=== PATIENT | male | born 1990 | race Caucasian/White ===

== ENCOUNTER 2016-05-26 06:09 | Emergency (ER) | payer OTHER ==
[2016-05-26 07:11] LABS: BASO # 0.1 K/mm3 (0.0-0.2); BASO % 1.2 % (0.0-1.0); EOS # 0.2 K/mm3 (0.0-0.50); EOS % 1.6 % (0.0-3.0); LARGE UNSTAINED CELL # 0.3 K/mm3 (0.0-0.4); LARGE UNSTAINED CELL % 2.9 % (0.0-4.0); LYMPH # 2.4 K/mm3 (1.5-6.5); LYMPH % 22.3 % (24.0-44.0); MEAN CORPUSCULAR HEMOGLOBIN 28.7 pg (27.0-33.0); MEAN CORPUSCULAR HGB CONC 34.5 g/dl (32.0-36.5); MEAN CORPUSCULAR VOLUME 83.4 fl (80.0-96.0); MONO # 0.5 K/mm3 (0.0-0.8); MONO % 4.7 % (0.0-5.0); NEUTROPHILS # 6.5 K/mm3 (1.8-7.7); NEUTROPHILS % 67.3 % (36.0-66.0); PLATELET COUNT, AUTOMATED 218 k/mm3 (150-450); RED CELL DISTRIBUTION WIDTH 13.7 % (11.5-14.5); WHITE BLOOD COUNT 9.7 K/mm3 (4.0-10.0)
[2016-05-26 07:16] LABS: INR 0.89
[2016-05-26 07:27] LABS: ANION GAP 9 MEQ/L (8-16); BLOOD UREA NITROGEN 15 MG/DL (7-18); CALCIUM LEVEL 9.6 MG/DL (8.5-10.1); CARBON DIOXIDE LEVEL 28 MEQ/L (21-32); CHLORIDE LEVEL 104 MEQ/L (98-107); CREATININE FOR GFR 0.92 MG/DL (0.70-1.30); GLOMERULAR FILTRATION RATE > 60.0 (>60); GLUCOSE, FASTING 88 MG/DL (70-105); POTASSIUM SERUM 4.1 MEQ/L (3.5-5.1); SODIUM LEVEL 141 MEQ/L (136-145)
--- NOTE | 2016-05-26 07:47 | REP ---
Clinical: Acute cough . Comparison: None . Technique: PA and lateral. Findings: The cardiac silhouette is normal. Mediastinal shift towards the left hemithorax is likely chronic given the patient's history. The lung ortega are clear and without acute consolidation, effusion, or pneumothorax. The skeletal structures are intact and normal. Impression: 1. No acute cardiopulmonary process. Signed by Devin Barrera MD 05/26/2016 07:39 A
[2016-05-26] MEDS ORDERED: ISOVUE-370 76% 100ML VIAL (Q9967) As Ordered ONE (08:08)
--- NOTE | 2016-05-26 08:56 | REP ---
Clinical: Hemoptysis. Technique: Axial contrast enhanced images from the thoracic inlet to the upper abdomen using 100 ml Isovue 370 intravenous contrast material coronal and sagittal re-formations. Findings: With respect to evaluation for pulmonary embolism, the examination is suboptimal due to poor opacification of the pulmonary arterial system secondary to underlying congenital abnormalities. 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 There is relatively diminutive appearance to the left main pulmonary artery with relative hypoplastic appearance to the left hemithorax and small irregular vessels in the region of the left hilum which may represent irregular collateral vessels replacing more being normal left main pulmonary artery. The tracheobronchial system appears relatively normal with appropriate bronchi outlining three right lung lobes (RUL, RML, RLL) and two left lung lobes (PETE, LLL). No pulmonary parenchymal consolidation, nodule or mass lesion is appreciated. No pleural effusion/reaction or pneumothorax. Skeletal structures are intact. Limited evaluation of the upper abdomen suggests fatty infiltration to the liver. Impression: 1. 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 2. Incomplete assessment of the pulmonary arterial system for pulmonary embolus. 3. Fatty infiltration the liver. Signed by Devin Barrera MD 05/26/2016 08:46 A
--- NOTE | 2016-05-26 10:09 | REP ---
Clinical: Hemoptysis and chest pain . Technique: Johnson scale and color Doppler evaluation using linear high frequency transducer. Findings: Ultrasound examination of the right and left lower extremity deep venous structures from the common femoral vein to the popliteal vein demonstrates normal compressibility flow and wave patterns in response to respiration and augmentation. There is no evidence for deep venous thrombosis. Impression: No evidence for deep venous thrombosis bilateral lower extremities. Signed by Devin Barrera MD 05/26/2016 10:01 A
--- NOTE | 2016-05-26 10:48 | EDDOCDS ---
Physician Documentation [facility] Name: Antonino Bennett Age: 25 yrs Sex: Male : 1990 Arrival Date: 05/26/2016 Time: 06:09 Bed 14 Private MD: Disposition: 05/26/16 10:23 Discharged to Home/Self Care. Impression: Hemoptysis - associated with productive cough. - Condition is Stable. - Discharge Instructions: Acute Bronchitis, Hemoptysis, Cough, Adult, [id number]. - Prescriptions for Zithromax Z- Cornelius 250 mg Oral Tablet - take 1 tablet by ORAL route as directed for 5 days Day 1- take two tablets once. Day 2, 3, 4 , 5 take one tablet once daily.; 6 tablet. Albuterol Sulfate 90 mcg/actuation Inhalation HFA Aerosol Inhaler - inhale 2 puff by INHALATION route every 4 hours As needed; 1 Inhaler. - Medication Reconciliation, Local Pharmacy Hours form. - Follow up: [facility] - Adults; When: Call to arrange an appointment. - Problem is new. - Symptoms have improved. Historical: - Allergies: BARBITURATES; SULFA (SULFONAMIDES); - Home Meds: 1. none - PMHx: Arthritis; - PSHx: none; - Social history: Smoking status: Patient uses tobacco products, current every day smoker. No barriers to communication noted, The patient speaks fluent Belarusian. - Family history: Not pertinent. - : The pt / caregiver states he / she is not on anticoagulants. Home medication list is obtained from the patient. - Exposure Risk Screening:: None identified. Vital Signs: 05/26 06:13 BP 139 / 89 RA Sitting; Pulse 106; Resp 18 S; Temp 99.3(T); Pulse Ox 94% on R/A; Weight af2 136.08 kg / 300.01 lbs (R); Height 5 ft. 10 in. (177.80 cm) (R); Pain 0/10; 08:28 BP 143 / 87; Pulse 96; Resp 18; Temp 98.1; Pulse Ox 97% on R/A; Pain 3/10; jrd 10:45 BP 134 / 76; Pulse 88; Resp 18; Temp 97.8; Pulse Ox 95% ; Pain 0/10; hs1 06:13 Body Mass Index 43.05 (136.08 kg, 177.80 cm) af2 MDM: 06:46 -Blood Culture (Adults Only), peripheral from different site, or from device/port/PICC cs11 etc. if present ordered. 06:46 IV Saline Lock ordered. cs11 06:47 Chest, 2 View (pa\E\lat) Ordered. EDMS 06:47 CBC with Diff Ordered. EDMS 06:47 MED Profile Ordered. EDMS 06:47 Pt & Aptt Ordered. EDMS 06:47 Lactic Acid (Johnson tube on ice) Ordered. EDMS 06:47 -Blood Culture Ordered. EDMS 06:47 -Blood Culture (Adults Only), peripheral from different site, or from device/port/PICC deg etc. if present complete. 06:48 BLOOD CULTURES Ordered. EDMS 07:52 CBC with Diff Reviewed. sd1 07:52 Pt & Aptt Reviewed. sd1 07:52 MED Profile Reviewed. sd1 07:52 Lactic Acid (Johnson tube on ice) Reviewed. sd1 07:54 CT Chest Angio R/O PE Ordered. EDMS 08:28 Financial registration complete. mm15 08:30 [facility] Payment Agreement was scanned into [employer] and attached to record. mm15 08:42 Chest, 2 View (pa\E\lat) Reviewed. sd1 09:05 Sputum Culture & Gram Stain Ordered. EDMS 09:06 US Lower Extremities Bilateral R/O DVT Ordered. EDMS Signatures: Dispatcher [employer] EDMS Orquidea Dimas MD MD sd1 Kylie Meadows, Merchandise Appraiser Unit deg Jennifer Barnes RN RN hs1 Andrew Juárez, DO cs11 Maryse Dyson mm15 Brinda Desai RN RN af2 Diana Odom,WALDO RN tm5 The chart was reviewed and I authenticate all verbal orders and agree with the evaluation and treatment provided.Attachments: 08:30 [facility] Payment Agreement mm15 MTDD
--- NOTE | 2016-05-26 10:48 | EDDOCDS ---
Nurse's Notes [facility] Name: Antonino Bennett Age: 25 yrs Sex: Male : 1990 Arrival Date: 05/26/2016 Time: 06:09 Bed 14 Private MD: Diagnosis: Hemoptysis-associated with productive cough Presentation: 05/26 06:15 Presenting complaint: Patient states: "throwing up blood last night, more than 8 oz, af2 blood coming out of my belly button, light headed, nausea.". Adult Sepsis Screening: The patient does not have new or worsening altered mentation. Patient's respiratory rate is less than 22. Systolic blood pressure is greater than 100. Patient has a qSOFA score of 0- Negative Sepsis Screen. Suicide/Homicide risk assessment- the patient denies having any suicidal and/or homicidal ideations and does not present with any other emotional, behavioral or mental health complaints. Status: Patient is not a auto service mechanic or dependent. Transition of care: patient was not received from another setting of care. 06:15 Acuity: BENJAMÍN Level 3 af2 06:15 Method Of Arrival: Walkin/Carried/Asstd af2 Triage Assessment: 06:16 General: Appears unkempt, Behavior is appropriate for age. Pain: Denies pain. Pt af2 Declines HIV testing. GI: Reports nausea. Historical: - Allergies: BARBITURATES; SULFA (SULFONAMIDES); - Home Meds: 1. none - PMHx: Arthritis; - PSHx: none; - Social history: Smoking status: Patient uses tobacco products, current every day smoker. No barriers to communication noted, The patient speaks fluent Bruneian. - Family history: Not pertinent. - : The pt / caregiver states he / she is not on anticoagulants. Home medication list is obtained from the patient. - Exposure Risk Screening:: None identified. Screenin:30 Screening information is obtained from the patient. Fall risk: No risks identified. tm5 Assistance ADL's: requires no assistance with activities of daily living. Abuse/DV Screen: The patient / caregiver reports he/she is: not in a situation that causes fear, pain or injury. Nutritional screening: No deficits noted. Advance Directives: There is no active DNR order. home support is adequate. Assessment: 06:30 General: Appears unkempt, Behavior is appropriate for age, cooperative. Pain: Denies tm5 pain. Neurological: Level of Consciousness is awake, alert, Oriented to person, place, time. Respiratory: No deficits noted. Airway is patent Respiratory effort is even, unlabored, Respiratory pattern is regular, symmetrical, Breath sounds are clear bilaterally. GI: Abdomen is obese, Bowel sounds present X 4 quads. Reports vomiting. : No deficits noted. Derm: Skin is pink, warm & dry. normal. 07:20 General: Appears in no apparent distress, unkempt, Behavior is appropriate for age, hs1 cooperative. Pain: Denies pain. Neurological: Level of Consciousness is awake, alert, Oriented to person, place, time. Respiratory: Airway is patent Respiratory effort is even, unlabored, Respiratory pattern is regular, symmetrical, Breath sounds are clear bilaterally. Derm: Skin is pink, warm & dry. normal. 08:22 General: Appears in no apparent distress, Behavior is appropriate for age, cooperative, hs1 patient tolerated CT scan well. Patient stated felt SOB and lightheaded after exam and wheeled via wheelchair to room. No needs after patient in room. . 09:28 General: Appears in no apparent distress, Behavior is appropriate for age, cooperative. hs1 Pain: Denies pain. Respiratory: No deficits noted. GI: Abdomen is obese. Derm: Skin is pink, warm & dry. normal. 10:36 Reassessment: Patient appears in no apparent distress at this time. Patient denies pain hs1 at this time. Pt produced sputum culture and sent for analysis. Patient agreeable to discharge and has no other needs except ride home. . Vital Signs: 06:13 BP 139 / 89 RA Sitting; Pulse 106; Resp 18 S; Temp 99.3(T); Pulse Ox 94% on R/A; Weight af2 136.08 kg (R); Height 5 ft. 10 in. (177.80 cm) (R); Pain 0/10; 08:28 BP 143 / 87; Pulse 96; Resp 18; Temp 98.1; Pulse Ox 97% on R/A; Pain 3/10; jrd 10:45 BP 134 / 76; Pulse 88; Resp 18; Temp 97.8; Pulse Ox 95% ; Pain 0/10; hs1 06:13 Body Mass Index 43.05 (136.08 kg, 177.80 cm) af2 Vitals: 06:13 Log In Time: May 26, 2016 at 06:12. af2 ED Course: 06:11 Patient visited by Minda Bolden Reg. hs2 06:11 Patient moved to Waiting hs2 06:16 Triage Initiated af2 06:17 Patient visited by Brinda Desai RN. af2 06:17 Patient moved to 14 af2 06:29 Patient visited by Diana Odom,WALDO. tm5 06:30 Awaiting ED physician evaluation. tm5 06:30 The patient / caregiver is instructed regarding the plan of care and ED course. tm5 06:47 Andrew Juárez DO is Attending Physician. cs11 06:47 Patient visited by Andrew Juárez DO. cs11 06:58 Patient visited by Diana Odom RN. tm5 06:58 Inserted saline lock: 18 gauge in right antecubital area and blood collected. The tm5 patient tolerated the procedure well. Labs/Blood culture drawn. 06:58 Lactic Acid (Johnson tube on ice) Sent. tm5 06:58 Pt & Aptt Sent. tm5 06:58 MED Profile Sent. tm5 06:59 CBC with Diff Sent. tm5 06:59 -Blood Culture Sent. tm5 07:01 Attending Physician role handed off by Andrew Juárez DO sd1 07:01 Orquidea Dimas MD is Attending Physician. sd1 07:04 Jennifer Barnes RN is Primary Nurse. hs1 07:28 Patient visited by Jennifer Barnes RN. hs1 07:53 Patient visited by Jennifer Barnes RN. hs1 07:53 BLOOD CULTURES Sent. hs1 08:05 Chest, 2 View (pa\\E\\lat) Returned. EDMS 08:28 Patient visited by Kenneth Beebe PCA. jrd 08:30 [facility] Payment Agreement was scanned into [employer] and attached to record. mm15 08:59 Patient visited by Jennifer Barnes RN. hs1 09:26 CT Chest Angio R/O PE Returned. EDMS 09:46 Patient visited by Jennifer Barnes RN. hs1 10:22 Patient visited by Jennifer Barnes RN. hs1 10:22 [facility] - [facility] is Referral Physician. sd1 10:36 Discontinued IV lock intact, bleeding controlled, pressure dressing applied, No hs1 redness/swelling at site. No procedures done that require assistance. Order Results: Lab Order: CBC with Diff; SPEC'M 05/26/16 06:56 Test: WHITE BLOOD COUNT; Value: 9.7; Range: 4.0-10.0; Units: K/mm3; Status: F Test: RED BLOOD COUNT; Value: 5.87; Range: 4.30-6.10; Units: M/mm3; Status: F Test: HEMOGLOBIN; Value: 16.9; Range: 14.0-18.0; Units: g/dl; Status: F Test: HEMATOCRIT; Value: 48.9; Range: 42.0-52.0; Units: %; Status: F Test: MEAN CORPUSCULAR VOLUME; Value: 83.4; Range: 80.0-96.0; Units: fl; Status: F Test: MEAN CORPUSCULAR HEMOGLOBIN; Value: 28.7; Range: 27.0-33.0; Units: pg; Status: F Test: MEAN CORPUSCULAR HGB CONC; Value: 34.5; Range: 32.0-36.5; Units: g/dl; Status: F Test: RED CELL DISTRIBUTION WIDTH; Value: 13.7; Range: 11.5-14.5; Units: %; Status: F Test: PLATELET COUNT, AUTOMATED; Value: 218; Range: 150-450; Units: k/mm3; Status: F Test: NEUTROPHILS %; Value: 67.3; Range: 36.0-66.0; Abnormal: Above high normal; Units: %; Status: F Test: LYMPH %; Value: 22.3; Range: 24.0-44.0; Abnormal: Below low normal; Units: %; Status: F Test: MONO %; Value: 4.7; Range: 0.0-5.0; Units: %; Status: F Test: EOS %; Value: 1.6; Range: 0.0-3.0; Units: %; Status: F Test: BASO %; Value: 1.2; Range: 0.0-1.0; Abnormal: Above high normal; Units: %; Status: F Test: LARGE UNSTAINED CELL %; Value: 2.9; Range: 0.0-4.0; Units: %; Status: F Test: NEUTROPHILS #; Value: 6.5; Range: 1.8-7.7; Units: K/mm3; Status: F Test: LYMPH #; Value: 2.4; Range: 1.5-6.5; Units: K/mm3; Status: F Test: MONO #; Value: 0.5; Range: 0.0-0.8; Units: K/mm3; Status: F Test: EOS #; Value: 0.2; Range: 0.0-0.50; Units: K/mm3; Status: F Test: BASO #; Value: 0.1; Range: 0.0-0.2; Units: K/mm3; Status: F Test: LARGE UNSTAINED CELL #; Value: 0.3; Range: 0.0-0.4; Units: K/mm3; Status: F Lab Order: [facility] Profile; [facility]' 05/26/16 06:56 Test: GLUCOSE, FASTING; Value: 88; Range: 70-105; Units: MG/DL; Status: F Test: BLOOD UREA NITROGEN; Value: 15; Range: 7-18; Units: MG/DL; Status: F Test: CREATININE FOR GFR; Value: 0.92; Range: 0.70-1.30; Units: MG/DL; Status: F Test: GLOMERULAR FILTRATION RATE; Value: > 60.0; Range: >60; Status: F Test: SODIUM LEVEL; Value: 141; Range: 136-145; Units: MEQ/L; Status: F Test: POTASSIUM SERUM; Value: 4.1; Range: 3.5-5.1; Units: MEQ/L; Status: F Test: CHLORIDE LEVEL; Value: 104; Range: 98-107; Units: MEQ/L; Status: F Test: CARBON DIOXIDE LEVEL; Value: 28; Range: 21-32; Units: MEQ/L; Status: F Test: ANION GAP; Value: 9; Range: 8-16; Units: MEQ/L; Status: F Test: CALCIUM LEVEL; Value: 9.6; Range: 8.5-10.1; Units: MG/DL; Status: F Test Note: ; Units are mL/min/1.73 m2 Chronic Kidney Disease Staging per NKF: Stage I & II GFR >=60 Normal to Mildly Decreased Stage III GFR 30-59 Moderately Decreased Stage IV GFR 15-29 Severely Decreased Stage V GFR <15 Very Little GFR Left ESRD GFR <15 on SENIOR ADMINISTRATIVE SUPPORT Lab Order: Pt & Aptt; SPEC'M 05/26/16 06:55 Test: PROTHROMBIN TIME; Value: 12.2; Range: 12.3-14.5; Abnormal: Below low normal; Units: SECONDS; Status: F Test: INR; Value: 0.89; Status: F Test: PARTIAL THROMBOPLASTIN TIME; Value: 30.5; Range: 26.6-37.1; Units: SECONDS; Status: F Test Note: ; THERAPUTIC HUMAN INR VALUES INDICATIONS NORMAL RANGES PROPHYLAXIS/TREATMENT OF: VENOUS THROMBOSIS 2.0-3.0 PULMONARY EMBOLISM 2.0-3.0 PREVENTION OF SYSTEMIC EMBOLISM FROM: TISSUE HEART VALVES 2.0-3.0 ACUTE MYOCARDIAL INFARCTION 2.0-3.0 VALVULAR HEART DISEASE 2.0-3.0 ATRIAL FIBRILLATION 2.0-3.0 MECHANICAL VALVES(HIGH RISK) 2.5-3.5 RECURRENT MYOCARDIAL INFARCTION 2.5-3.5 Lab Order: Lactic Acid (Johnson tube on ice); SPEC'M 05/26/16 06:56 Test: LACTIC ACID LEVEL, LACTATE; Value: 1.1; Range: 0.4-2.0; Units: MMOL/L; Status: F Radiology Order: Chest, 2 View (pa\\E\\lat) Test: Chest, 2 View (pa\\E\\lat) REASON FOR EXAMINATION: Cough; Clinical: Acute cough .; ; Comparison: None .; ; Technique: PA and lateral.; ; Findings:; The cardiac silhouette is normal. Mediastinal shift towards the left hemithorax; is likely chronic given the patient's history. The lung ortega are clear and; without acute consolidation, effusion, or pneumothorax. The skeletal structures; are intact and normal.; ; Impression:; 1. No acute cardiopulmonary process.; ; ; Signed by; Devin Barrera MD 05/26/2016 07:39 A; Radiology Order: CT Chest Angio R/O PE Test: CT Chest Angio R/O PE REASON FOR EXAMINATION: hemoptysis; Clinical: Hemoptysis.; ; Technique: Axial contrast enhanced images from the thoracic inlet to the upper; abdomen using 100 ml Isovue 370 intravenous contrast material coronal and; sagittal re-formations.; ; Findings:; With respect to evaluation for pulmonary embolism, the examination is suboptimal; due to poor opacification of the pulmonary arterial system secondary to; underlying congenital abnormalities.; ; 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 The; tracheobronchial system appears relatively normal with appropriate bronchi; outlining three right lung lobes (RUL, RML, RLL) and two left lung lobes (PETE,; LLL). No pulmonary parenchymal consolidation, nodule or mass lesion is; appreciated. No pleural effusion/reaction or pneumothorax.; ; Skeletal structures are intact. Limited evaluation of the upper abdomen suggests; fatty infiltration to the liver.; ; Impression:; 1. 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 Incomplete assessment of the pulmonary arterial system for pulmonary; embolus.; 3. Fatty infiltration the liver.; ; ; Signed by; Devin Barrera MD 05/26/2016 08:46 A; Outcome: 10:23 Discharge ordered by Provider. sd1 10:44 Discharge Assessment: Patient awake, alert and oriented x 3. No cognitive and/or hs1 functional deficits noted. Patient verbalized understanding of disposition instructions. patient administered narcotics - no. The following High Risk Discharge criteria are identified: None. Condition: stable. Discharge instructions given to patient, Instructed on discharge instructions, follow up and referral plans. medication usage, Demonstrated understanding of instructions, medications, Pt was receptive of discharge instructions/ teaching. Prescriptions given X 2. CT Study completed. Ultrasound Study completed. Property sent home with patient. 10:47 Patient left the ED. hs1 Signatures: Dispatcher [employer] EDMS Orquidea Dimas MD MD sd1 Jennifer Barnes RN RN hs1 Andrew Juárez DO DO cs11 Maryse Dyson mm15 Kenneth Beebe, TRAVELING SALES EXECUTIVE TRAVELING SALES EXECUTIVE jrd Brinda Desai,RN RN af2 Minda Bolden, Reg Reg hs2 Diana Odom,RN RN tm5 MTDD
--- NOTE | 2016-05-28 11:48 | EDDOCDS ---
Physician Documentation [facility] Name: Antonino Bennett Age: 25 yrs Sex: Male : 1990 Arrival Date: 05/26/2016 Time: 06:09 Bed 14 Private MD: Disposition: 05/26/16 10:23 Discharged to Home/Self Care. Impression: Hemoptysis - associated with productive cough. - Condition is Stable. - Discharge Instructions: Acute Bronchitis, Hemoptysis, Cough, Adult, [id number]. - Prescriptions for Zithromax Z- Cornelius 250 mg Oral Tablet - take 1 tablet by ORAL route as directed for 5 days Day 1- take two tablets once. Day 2, 3, 4 , 5 take one tablet once daily.; 6 tablet. Albuterol Sulfate 90 mcg/actuation Inhalation HFA Aerosol Inhaler - inhale 2 puff by INHALATION route every 4 hours As needed; 1 Inhaler. - Medication Reconciliation, Local Pharmacy Hours form. - Follow up: [facility] - Adults; When: Call to arrange an appointment. - Problem is new. - Symptoms have improved. Historical: - Allergies: BARBITURATES; SULFA (SULFONAMIDES); - Home Meds: 1. none - PMHx: Arthritis; - PSHx: none; - Social history: Smoking status: Patient uses tobacco products, current every day smoker. No barriers to communication noted, The patient speaks fluent Khmer. - Family history: Not pertinent. - : The pt / caregiver states he / she is not on anticoagulants. Home medication list is obtained from the patient. - Exposure Risk Screening:: None identified. Vital Signs: 05/26 06:13 BP 139 / 89 RA Sitting; Pulse 106; Resp 18 S; Temp 99.3(T); Pulse Ox 94% on R/A; Weight af2 136.08 kg / 300.01 lbs (R); Height 5 ft. 10 in. (177.80 cm) (R); Pain 0/10; 08:28 BP 143 / 87; Pulse 96; Resp 18; Temp 98.1; Pulse Ox 97% on R/A; Pain 3/10; jrd 10:45 BP 134 / 76; Pulse 88; Resp 18; Temp 97.8; Pulse Ox 95% ; Pain 0/10; hs1 06:13 Body Mass Index 43.05 (136.08 kg, 177.80 cm) af2 MDM: 06:46 -Blood Culture (Adults Only), peripheral from different site, or from device/port/PICC cs11 etc. if present ordered. 06:46 IV Saline Lock ordered. cs11 06:47 Chest, 2 View (pa\E\lat) Ordered. EDMS 06:47 CBC with Diff Ordered. EDMS 06:47 MED Profile Ordered. EDMS 06:47 Pt & Aptt Ordered. EDMS 06:47 Lactic Acid (Johnson tube on ice) Ordered. EDMS 06:47 -Blood Culture Ordered. EDMS 06:47 -Blood Culture (Adults Only), peripheral from different site, or from device/port/PICC deg etc. if present complete. 06:48 BLOOD CULTURES Ordered. EDMS 07:52 CBC with Diff Reviewed. sd1 07:52 Pt & Aptt Reviewed. sd1 07:52 MED Profile Reviewed. sd1 07:52 Lactic Acid (Johnson tube on ice) Reviewed. sd1 07:54 CT Chest Angio R/O PE Ordered. EDMS 08:28 Financial registration complete. mm15 08:30 [facility] Payment Agreement was scanned into [employer] and attached to record. mm15 08:42 Chest, 2 View (pa\E\lat) Reviewed. sd1 09:05 Sputum Culture & Gram Stain Ordered. EDMS 09:06 US Lower Extremities Bilateral R/O DVT Ordered. EDNH 12:44 T-Sheet-- Draft Copy was scanned into [employer] and attached to record. [facility] 12:58 Radiology Report was scanned into [employer] and attached to record. gb Signatures: Dispatcher [employer] EDOrquidea Arnold MD MD sd1 Kylie Meadows, Firer [employer] Locom[employer] deg Lesia Holder, Reg Reg gb Jennifer Barnes, WALDO RN hs1 Andrew Juárez, DO cs11 Maryse Dyson mm15 Brinda Desai,WALDO RN af2 Orquidea Daugherty Tonya,RN RN tm5 The chart was reviewed and I authenticate all verbal orders and agree with the evaluation and treatment provided.Attachments: 08:30 [facility] Payment Agreement mm15 12:44 T-Sheet-- Draft Copy seh Chart Complete MTDD
--- NOTE | 2016-05-28 11:48 | EDDOCDS ---
Nurse's Notes [facility] Name: Antonino Bennett Age: 25 yrs Sex: Male : 1990 Arrival Date: 05/26/2016 Time: 06:09 Bed 14 Private MD: Diagnosis: Hemoptysis-associated with productive cough Presentation: 05/26 06:15 Presenting complaint: Patient states: "throwing up blood last night, more than 8 oz, af2 blood coming out of my belly button, light headed, nausea.". Adult Sepsis Screening: The patient does not have new or worsening altered mentation. Patient's respiratory rate is less than 22. Systolic blood pressure is greater than 100. Patient has a qSOFA score of 0- Negative Sepsis Screen. Suicide/Homicide risk assessment- the patient denies having any suicidal and/or homicidal ideations and does not present with any other emotional, behavioral or mental health complaints. Status: Patient is not a client service executive or dependent. Transition of care: patient was not received from another setting of care. 06:15 Acuity: BENJAMÍN Level 3 af2 06:15 Method Of Arrival: Walkin/Carried/Asstd af2 Triage Assessment: 06:16 General: Appears unkempt, Behavior is appropriate for age. Pain: Denies pain. Pt af2 Declines HIV testing. GI: Reports nausea. Historical: - Allergies: BARBITURATES; SULFA (SULFONAMIDES); - Home Meds: 1. none - PMHx: Arthritis; - PSHx: none; - Social history: Smoking status: Patient uses tobacco products, current every day smoker. No barriers to communication noted, The patient speaks fluent Malian. - Family history: Not pertinent. - : The pt / caregiver states he / she is not on anticoagulants. Home medication list is obtained from the patient. - Exposure Risk Screening:: None identified. Screenin:30 Screening information is obtained from the patient. Fall risk: No risks identified. tm5 Assistance ADL's: requires no assistance with activities of daily living. Abuse/DV Screen: The patient / caregiver reports he/she is: not in a situation that causes fear, pain or injury. Nutritional screening: No deficits noted. Advance Directives: There is no active DNR order. home support is adequate. Assessment: 06:30 General: Appears unkempt, Behavior is appropriate for age, cooperative. Pain: Denies tm5 pain. Neurological: Level of Consciousness is awake, alert, Oriented to person, place, time. Respiratory: No deficits noted. Airway is patent Respiratory effort is even, unlabored, Respiratory pattern is regular, symmetrical, Breath sounds are clear bilaterally. GI: Abdomen is obese, Bowel sounds present X 4 quads. Reports vomiting. : No deficits noted. Derm: Skin is pink, warm & dry. normal. 07:20 General: Appears in no apparent distress, unkempt, Behavior is appropriate for age, hs1 cooperative. Pain: Denies pain. Neurological: Level of Consciousness is awake, alert, Oriented to person, place, time. Respiratory: Airway is patent Respiratory effort is even, unlabored, Respiratory pattern is regular, symmetrical, Breath sounds are clear bilaterally. Derm: Skin is pink, warm & dry. normal. 08:22 General: Appears in no apparent distress, Behavior is appropriate for age, cooperative, hs1 patient tolerated CT scan well. Patient stated felt SOB and lightheaded after exam and wheeled via wheelchair to room. No needs after patient in room. . 09:28 General: Appears in no apparent distress, Behavior is appropriate for age, cooperative. hs1 Pain: Denies pain. Respiratory: No deficits noted. GI: Abdomen is obese. Derm: Skin is pink, warm & dry. normal. 10:36 Reassessment: Patient appears in no apparent distress at this time. Patient denies pain hs1 at this time. Pt produced sputum culture and sent for analysis. Patient agreeable to discharge and has no other needs except ride home. . Vital Signs: 06:13 BP 139 / 89 RA Sitting; Pulse 106; Resp 18 S; Temp 99.3(T); Pulse Ox 94% on R/A; Weight af2 136.08 kg (R); Height 5 ft. 10 in. (177.80 cm) (R); Pain 0/10; 08:28 BP 143 / 87; Pulse 96; Resp 18; Temp 98.1; Pulse Ox 97% on R/A; Pain 3/10; jrd 10:45 BP 134 / 76; Pulse 88; Resp 18; Temp 97.8; Pulse Ox 95% ; Pain 0/10; hs1 06:13 Body Mass Index 43.05 (136.08 kg, 177.80 cm) af2 Vitals: 06:13 Log In Time: May 26, 2016 at 06:12. af2 ED Course: 06:11 Patient visited by Minda Bolden Reg. hs2 06:11 Patient moved to Waiting hs2 06:16 Triage Initiated af2 06:17 Patient visited by Brinda Desai RN. af2 06:17 Patient moved to 14 af2 06:29 Patient visited by Diana Odom,WALDO. tm5 06:30 Awaiting ED physician evaluation. tm5 06:30 The patient / caregiver is instructed regarding the plan of care and ED course. tm5 06:47 Andrew Juárez DO is Attending Physician. cs11 06:47 Patient visited by Andrew Juárez DO. cs11 06:58 Patient visited by Diana Odom RN. tm5 06:58 Inserted saline lock: 18 gauge in right antecubital area and blood collected. The tm5 patient tolerated the procedure well. Labs/Blood culture drawn. 06:58 Lactic Acid (Johnson tube on ice) Sent. tm5 06:58 Pt & Aptt Sent. tm5 06:58 MED Profile Sent. tm5 06:59 CBC with Diff Sent. tm5 06:59 -Blood Culture Sent. tm5 07:01 Attending Physician role handed off by Andrew Juárez DO sd1 07:01 Orquidea Dimas MD is Attending Physician. sd1 07:04 Jennifer Barnes RN is Primary Nurse. hs1 07:28 Patient visited by Jennifer Barnes RN. hs1 07:53 Patient visited by Jennifer Barnes RN. hs1 07:53 BLOOD CULTURES Sent. hs1 08:05 Chest, 2 View (pa\\E\\lat) Returned. EDMS 08:28 Patient visited by Kenneth Beebe PCA. jrd 08:30 [facility] Payment Agreement was scanned into [employer] and attached to record. mm15 08:59 Patient visited by Jennifer Barnes RN. hs1 09:26 CT Chest Angio R/O PE Returned. EDMS 09:46 Patient visited by Jennifer Barnes RN. hs1 10:22 Patient visited by Jennifer Barnes RN. hs1 10:22 [facility] is Referral Physician. sd1 10:36 Discontinued IV lock intact, bleeding controlled, pressure dressing applied, No hs1 redness/swelling at site. No procedures done that require assistance. 10:48 US Lower Extremities Bilateral R/O DVT Returned. EDHI 12:44 T-Sheet-- Draft Copy was scanned into [employer] and attached to record. [facility] 12:58 Radiology Report was scanned into [employer] and attached to record. gb Order Results: Lab Order: CBC with Diff; SPEC'M 05/26/16 06:56 Test: WHITE BLOOD COUNT; Value: 9.7; Range: 4.0-10.0; Units: K/mm3; Status: F Test: RED BLOOD COUNT; Value: 5.87; Range: 4.30-6.10; Units: M/mm3; Status: F Test: HEMOGLOBIN; Value: 16.9; Range: 14.0-18.0; Units: g/dl; Status: F Test: HEMATOCRIT; Value: 48.9; Range: 42.0-52.0; Units: %; Status: F Test: MEAN CORPUSCULAR VOLUME; Value: 83.4; Range: 80.0-96.0; Units: fl; Status: F Test: MEAN CORPUSCULAR HEMOGLOBIN; Value: 28.7; Range: 27.0-33.0; Units: pg; Status: F Test: MEAN CORPUSCULAR HGB CONC; Value: 34.5; Range: 32.0-36.5; Units: g/dl; Status: F Test: RED CELL DISTRIBUTION WIDTH; Value: 13.7; Range: 11.5-14.5; Units: %; Status: F Test: PLATELET COUNT, AUTOMATED; Value: 218; Range: 150-450; Units: k/mm3; Status: F Test: NEUTROPHILS %; Value: 67.3; Range: 36.0-66.0; Abnormal: Above high normal; Units: %; Status: F Test: LYMPH %; Value: 22.3; Range: 24.0-44.0; Abnormal: Below low normal; Units: %; Status: F Test: MONO %; Value: 4.7; Range: 0.0-5.0; Units: %; Status: F Test: EOS %; Value: 1.6; Range: 0.0-3.0; Units: %; Status: F Test: BASO %; Value: 1.2; Range: 0.0-1.0; Abnormal: Above high normal; Units: %; Status: F Test: LARGE UNSTAINED CELL %; Value: 2.9; Range: 0.0-4.0; Units: %; Status: F Test: NEUTROPHILS #; Value: 6.5; Range: 1.8-7.7; Units: K/mm3; Status: F Test: LYMPH #; Value: 2.4; Range: 1.5-6.5; Units: K/mm3; Status: F Test: MONO #; Value: 0.5; Range: 0.0-0.8; Units: K/mm3; Status: F Test: EOS #; Value: 0.2; Range: 0.0-0.50; Units: K/mm3; Status: F Test: BASO #; Value: 0.1; Range: 0.0-0.2; Units: K/mm3; Status: F Test: LARGE UNSTAINED CELL #; Value: 0.3; Range: 0.0-0.4; Units: K/mm3; Status: F Lab Order: MED Profile; SPEC'M 05/26/16 06:56 Test: GLUCOSE, FASTING; Value: 88; Range: 70-105; Units: MG/DL; Status: F Test: BLOOD UREA NITROGEN; Value: 15; Range: 7-18; Units: MG/DL; Status: F Test: CREATININE FOR GFR; Value: 0.92; Range: 0.70-1.30; Units: MG/DL; Status: F Test: GLOMERULAR FILTRATION RATE; Value: > 60.0; Range: >60; Status: F Test: SODIUM LEVEL; Value: 141; Range: 136-145; Units: MEQ/L; Status: F Test: POTASSIUM SERUM; Value: 4.1; Range: 3.5-5.1; Units: MEQ/L; Status: F Test: CHLORIDE LEVEL; Value: 104; Range: 98-107; Units: MEQ/L; Status: F Test: CARBON DIOXIDE LEVEL; Value: 28; Range: 21-32; Units: MEQ/L; Status: F Test: ANION GAP; Value: 9; Range: 8-16; Units: MEQ/L; Status: F Test: CALCIUM LEVEL; Value: 9.6; Range: 8.5-10.1; Units: MG/DL; Status: F Test Note: ; Units are mL/min/1.73 m2 Chronic Kidney Disease Staging per NKF: Stage I & II GFR >=60 Normal to Mildly Decreased Stage III GFR 30-59 Moderately Decreased Stage IV GFR 15-29 Severely Decreased Stage V GFR <15 Very Little GFR Left ESRD GFR <15 on REFRIGERATOR GLAZIER Lab Order: Pt & Aptt; [facility]' 05/26/16 06:55 Test: PROTHROMBIN TIME; Value: 12.2; Range: 12.3-14.5; Abnormal: Below low normal; Units: SECONDS; Status: F Test: INR; Value: 0.89; Status: F Test: PARTIAL THROMBOPLASTIN TIME; Value: 30.5; Range: 26.6-37.1; Units: SECONDS; Status: F Test Note: ; THERAPUTIC HUMAN INR VALUES INDICATIONS NORMAL RANGES PROPHYLAXIS/TREATMENT OF: VENOUS THROMBOSIS 2.0-3.0 PULMONARY EMBOLISM 2.0-3.0 PREVENTION OF SYSTEMIC EMBOLISM FROM: TISSUE HEART VALVES 2.0-3.0 ACUTE MYOCARDIAL INFARCTION 2.0-3.0 VALVULAR HEART DISEASE 2.0-3.0 ATRIAL FIBRILLATION 2.0-3.0 MECHANICAL VALVES(HIGH RISK) 2.5-3.5 RECURRENT MYOCARDIAL INFARCTION 2.5-3.5 Lab Order: Lactic Acid (Johnson tube on ice); [facility]' 05/26/16 06:56 Test: LACTIC ACID LEVEL, LACTATE; Value: 1.1; Range: 0.4-2.0; Units: MMOL/L; Status: F Lab Order: -Blood Culture; [facility]' 05/26/16 06:55 Test: BLOOD CULTURE; Value: No growth after 24 hours . All specimens observed; Status: F Test: BLOOD CULTURE; Value: for 5 days. Results final at that time.; Status: F Test: BLOOD CULTURE; Value: No Growth after 48 hours. All Specimens observed; Status: F Test: BLOOD CULTURE; Value: for 7 days. Results final at that time.; Status: F Lab Order: BLOOD CULTURES; [facility]' 05/26/16 07:53 Test: BLOOD CULTURE; Value: No growth after 24 hours . All specimens observed; Status: F Test: BLOOD CULTURE; Value: for 5 days. Results final at that time.; Status: F Test: BLOOD CULTURE; Value: No Growth after 48 hours. All Specimens observed; Status: F Test: BLOOD CULTURE; Value: for 7 days. Results final at that time.; Status: F Lab Order: Sputum Culture & Gram Stain; SPEC'M 05/26/16 10:33 Test: GRAM STAIN; Value: GRAM STAIN RESULT; Status: F Test: GRAM STAIN; Value: QUALITY: POOR; Status: F Test: GRAM STAIN; Value: MANY EPITHELIAL CELLS; Status: F Test: GRAM STAIN; Value: MANY WBCS; Status: F Test: GRAM STAIN; Value: MANY GRAM POSITIVE COCCI IN PAIRS, CHAINS AND CLUSTERS; Status: F Test: GRAM STAIN; Value: MODERATE GRAM POSITIVE RODS; Status: F Test: SPUTUM CULTURE; Value: Sputum culture not performed due to oropharyngeal; Status: F Test: SPUTUM CULTURE; Value: contamination. Further processing of such specimens would; Status: F Test: SPUTUM CULTURE; Value: not yield useful information about the possible pathogens; Status: F Test: SPUTUM CULTURE; Value: from the lower respiratory tract.; Status: F Test: SPUTUM CULTURE; Value: Test not performed; Status: F Radiology Order: Chest, 2 View (pa\\E\\lat) Test: Chest, 2 View (pa\\E\\lat) REASON FOR EXAMINATION: Cough; Clinical: Acute cough .; ; Comparison: None .; ; Technique: PA and lateral.; ; Findings:; The cardiac silhouette is normal. Mediastinal shift towards the left hemithorax; is likely chronic given the patient's history. The lung ortega are clear and; without acute consolidation, effusion, or pneumothorax. The skeletal structures; are intact and normal.; ; Impression:; 1. No acute cardiopulmonary process.; ; ; Signed by; Devin Barrera MD 05/26/2016 07:39 A; Radiology Order: CT Chest Angio R/O PE Test: CT Chest Angio R/O PE REASON FOR EXAMINATION: hemoptysis; Clinical: Hemoptysis.; ; Technique: Axial contrast enhanced images from the thoracic inlet to the upper; abdomen using 100 ml Isovue 370 intravenous contrast material coronal and; sagittal re-formations.; ; Findings:; With respect to evaluation for pulmonary embolism, the examination is suboptimal; due to poor opacification of the pulmonary arterial system secondary to; underlying congenital abnormalities.; ; 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 The; tracheobronchial system appears relatively normal with appropriate bronchi; outlining three right lung lobes (RUL, RML, RLL) and two left lung lobes (PETE,; LLL). No pulmonary parenchymal consolidation, nodule or mass lesion is; appreciated. No pleural effusion/reaction or pneumothorax.; ; Skeletal structures are intact. Limited evaluation of the upper abdomen suggests; fatty infiltration to the liver.; ; Impression:; 1. 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 Incomplete assessment of the pulmonary arterial system for pulmonary; embolus.; 3. Fatty infiltration the liver.; ; ; Signed by; Devin Barrera MD 05/26/2016 08:46 A; Radiology Order: US Lower Extremities Bilateral R/O DVT Test: US Lower Extremities Bilateral R/O DVT REASON FOR EXAMINATION: R/O DVT hemoptysis limited CT angio; Clinical: Hemoptysis and chest pain .; ; Technique: Johnson scale and color Doppler evaluation using linear high frequency; transducer.; ; Findings:; Ultrasound examination of the right and left lower extremity deep venous; structures from the common femoral vein to the popliteal vein demonstrates normal; compressibility flow and wave patterns in response to respiration and; augmentation. There is no evidence for deep venous thrombosis.; ; Impression:; No evidence for deep venous thrombosis bilateral lower extremities.; ; ; Signed by; Devin Barrera MD 05/26/2016 10:01 A; Outcome: 10:23 Discharge ordered by Provider. sd1 10:44 Discharge Assessment: Patient awake, alert and oriented x 3. No cognitive and/or hs1 functional deficits noted. Patient verbalized understanding of disposition instructions. patient administered narcotics - no. The following High Risk Discharge criteria are identified: None. Condition: stable. Discharge instructions given to patient, Instructed on discharge instructions, follow up and referral plans. medication usage, Demonstrated understanding of instructions, medications, Pt was receptive of discharge instructions/ teaching. Prescriptions given X 2. CT Study completed. Ultrasound Study completed. Property sent home with patient. 10:47 Patient left the ED. hs1 Signatures: Dispatcher [employer] EDHI Orquidea Dimas MD MD sd1 Lesia Holder, Reg Reg gb Jennifer Barnes, RN RN hs1 Andrew Juárez DO DO cs11 Maryse Dyson mm15 Kenneth Beebe, SANDWICH COUNTER ATTENDANT SANDWICH COUNTER ATTENDANT jrd Brinda Desai,RN RN af2 Minda Bolden, Reg Reg hs2 Orquidea Daugherty Tonya,RN RN tm5 Chart Complete AZAR
--- NOTE | 2016-05-28 11:48 | EDDOCDS ---
Physician Documentation [facility] Name: Antonino Bennett Age: 25 yrs Sex: Male : 1990 Arrival Date: 05/26/2016 Time: 06:09 Bed 14 Private MD: Disposition: 05/26/16 10:23 Discharged to Home/Self Care. Impression: Hemoptysis - associated with productive cough. - Condition is Stable. - Discharge Instructions: Acute Bronchitis, Hemoptysis, Cough, Adult, [id number]. - Prescriptions for Zithromax Z- Cornelius 250 mg Oral Tablet - take 1 tablet by ORAL route as directed for 5 days Day 1- take two tablets once. Day 2, 3, 4 , 5 take one tablet once daily.; 6 tablet. Albuterol Sulfate 90 mcg/actuation Inhalation HFA Aerosol Inhaler - inhale 2 puff by INHALATION route every 4 hours As needed; 1 Inhaler. - Medication Reconciliation, Local Pharmacy Hours form. - Follow up: [facility]; When: Call to arrange an appointment. - Problem is new. - Symptoms have improved. Historical: - Allergies: BARBITURATES; SULFA (SULFONAMIDES); - Home Meds: 1. none - PMHx: Arthritis; - PSHx: none; - Social history: Smoking status: Patient uses tobacco products, current every day smoker. No barriers to communication noted, The patient speaks fluent Greenlandic. - Family history: Not pertinent. - : The pt / caregiver states he / she is not on anticoagulants. Home medication list is obtained from the patient. - Exposure Risk Screening:: None identified. Vital Signs: 05/26 06:13 BP 139 / 89 RA Sitting; Pulse 106; Resp 18 S; Temp 99.3(T); Pulse Ox 94% on R/A; Weight af2 136.08 kg / 300.01 lbs (R); Height 5 ft. 10 in. (177.80 cm) (R); Pain 0/10; 08:28 BP 143 / 87; Pulse 96; Resp 18; Temp 98.1; Pulse Ox 97% on R/A; Pain 3/10; jrd 10:45 BP 134 / 76; Pulse 88; Resp 18; Temp 97.8; Pulse Ox 95% ; Pain 0/10; hs1 06:13 Body Mass Index 43.05 (136.08 kg, 177.80 cm) af2 MDM: 06:46 -Blood Culture (Adults Only), peripheral from different site, or from device/port/PICC cs11 etc. if present ordered. 06:46 IV Saline Lock ordered. cs11 06:47 Chest, 2 View (pa\E\lat) Ordered. EDMS 06:47 CBC with Diff Ordered. EDMS 06:47 MED Profile Ordered. EDMS 06:47 Pt & Aptt Ordered. EDMS 06:47 Lactic Acid (Johnson tube on ice) Ordered. EDMS 06:47 -Blood Culture Ordered. EDMS 06:47 -Blood Culture (Adults Only), peripheral from different site, or from device/port/PICC deg etc. if present complete. 06:48 BLOOD CULTURES Ordered. EDMS 07:52 CBC with Diff Reviewed. sd1 07:52 Pt & Aptt Reviewed. sd1 07:52 MED Profile Reviewed. sd1 07:52 Lactic Acid (Johnson tube on ice) Reviewed. sd1 07:54 CT Chest Angio R/O PE Ordered. EDMS 08:28 Financial registration complete. mm15 08:30 [facility] Payment Agreement was scanned into [employer] and attached to record. mm15 08:42 Chest, 2 View (pa\E\lat) Reviewed. sd1 09:05 Sputum Culture & Gram Stain Ordered. EDMS 09:06 US Lower Extremities Bilateral R/O DVT Ordered. EDKY 12:44 T-Sheet-- Draft Copy was scanned into [employer] and attached to record. [facility] 12:58 Radiology Report was scanned into [employer] and attached to record. gb Signatures: Dispatcher [employer] EDOrquidea Arnold MD MD sd1 Kylie Meadows, Branch Examiner Unit deg Lesia Holder, Reg Reg gb Jennifer Barnes, WALDO RN hs1 Andrew Juárez, DO cs11 Maryse Dyson mm15 Brinda Desai,WALDO RN af2 Orquidea Daugherty Tonya,RN RN tm5 The chart was reviewed and I authenticate all verbal orders and agree with the evaluation and treatment provided.Attachments: 08:30 [facility] Payment Agreement mm15 12:44 T-Sheet-- Draft Copy seh Chart Complete MTDD
== END 2016-05-26 10:47 | disposition home or self-care (01) ==
LOC: M ED 06:09
DX: R04.2 Hemoptysis (principal); M19.90 Unspecified osteoarthritis, unspecified site; Z88.2 Allergy status to sulfonamides; Z88.8 Allergy status to other drugs, medicaments and biological substances; F17.210 Nicotine dependence, cigarettes, uncomplicated
CPT/HCPCS: 36415; 71020; 71275; 80048; 83605; 85025; 85610; 85730; 87040; 87205; 93970; 99284; Q9967

== ENCOUNTER 2016-10-04 11:50 | Emergency (ER) | payer OTHER ==
[~2016-10-04] VITALS: Ht 180.3 cm; Wt 149.7 kg
[2016-10-04 11:50] VITALS: BP 166/97
[2016-10-04] MEDS ORDERED: ALBU17IN (11:57)
[2016-10-04] MEDS ORDERED: AMOX500C PO (13:12)
[2016-10-04] MEDS ORDERED: AMOXICILLIN 500 MG CAP PO ONE (13:15)
[2016-10-04] MEDS ORDERED: CIPROFLOXACIN HC OTIC SUSPENSION AS ONE (13:15)
== END 2016-10-04 13:21 | disposition home or self-care (01) ==
LOC: M ED 12:50
DX: H92.02 Otalgia, left ear (principal); H60.12 Cellulitis of left external ear; J45.909 Unspecified asthma, uncomplicated; F31.9 Bipolar disorder, unspecified; F90.9 Attention-deficit hyperactivity disorder, unspecified type; F17.210 Nicotine dependence, cigarettes, uncomplicated; Z79.899 Other long term (current) drug therapy; Z88.8 Allergy status to other drugs, medicaments and biological substances; Z88.2 Allergy status to sulfonamides; Z88.1 Allergy status to other antibiotic agents

== ENCOUNTER 2016-12-10 15:56 | Emergency (ER) | payer OTHER ==
[~2016-12-10] VITALS: Ht 177.8 cm; Wt 148.1 kg
[~2016-12-10 15:56] MED LIST: ALBU17IN; AMOX500C PO
[2016-12-10 16:19] VITALS: BP 142/87
[2016-12-10] MEDS ORDERED: MAGICMW MT (17:28)
[2016-12-10] MEDS ORDERED: AMOX875T PO (17:28)
[2016-12-10] MEDS ORDERED: ACET30TAB PO (17:28)
== END 2016-12-10 17:55 | disposition home or self-care (01) ==
LOC: M ED 15:56
DX: K08.89 Other specified disorders of teeth and supporting structures (principal); J45.909 Unspecified asthma, uncomplicated; F90.9 Attention-deficit hyperactivity disorder, unspecified type; F31.9 Bipolar disorder, unspecified; F17.200 Nicotine dependence, unspecified, uncomplicated; E66.01 Morbid (severe) obesity due to excess calories; Z88.2 Allergy status to sulfonamides; Z88.8 Allergy status to other drugs, medicaments and biological substances

== ENCOUNTER 2017-01-17 05:57 | Emergency (ER) | payer OTHER ==
[~2017-01-17] VITALS: Ht 177.8 cm; Wt 150.0 kg
[~2017-01-17 05:57] MED LIST changes: +ACET30TAB PO; +AMOX875T PO; +MAGICMW MT
[2017-01-17] MEDS ORDERED: IBUPROFEN 800 MG TAB PO ONE (06:45)
[2017-01-17] MEDS ORDERED: ADACEL/BOOSTRIX VACCINE (DIPHTH/PERTUSS/ACELL/TETANUS)0.5ML SYR (90715) IM ONE (06:45)
[2017-01-17 07:25] VITALS: BP 139/91
--- NOTE | 2017-01-17 07:50 | REP ---
Clinical: Trauma. Pain. Technique: AP, lateral, bilateral oblique views right and left wrist. Findings: Left wrist demonstrates intra-articular fracture involving the distal radial metaphysis. Carpal bones are intact. Surrounding soft tissues grossly unremarkable. Right wrist: The carpal bones, surrounding osseous structures, soft tissues, and joint spaces are normal. There is no evidence for acute fracture or dislocation. No subcutaneous emphysema or radiodense foreign body. Impression: Intra-articular fracture involving the distal left radial metaphysis. Normal right wrist series. Signed by Devin Barrera MD 01/17/2017 07:41 A
== END 2017-01-17 07:21 | disposition home or self-care (01) ==
LOC: M ED 05:57
DX: S52.502A Unspecified fracture of the lower end of left radius, initial encounter for closed fracture (principal); S63.658A Sprain of metacarpophalangeal joint of other finger, initial encounter; S80.02XA Contusion of left knee, initial encounter; S00.211A Abrasion of right eyelid and periocular area, initial encounter; V18.9XXA Unspecified pedal cyclist injured in noncollision transport accident in traffic accident, initial encounter; Y92.410 Unspecified street and highway as the place of occurrence of the external cause; Y93.9 Activity, unspecified; Y99.9 Unspecified external cause status; J45.909 Unspecified asthma, uncomplicated; F90.9 Attention-deficit hyperactivity disorder, unspecified type; F31.9 Bipolar disorder, unspecified; F17.200 Nicotine dependence, unspecified, uncomplicated; Z88.2 Allergy status to sulfonamides; Z88.8 Allergy status to other drugs, medicaments and biological substances

== ENCOUNTER → 2017-02-01 | Outpatient (CLI) | payer OTHER ==
--- NOTE | 2017-02-01 13:57 | REP ---
CT LEFT WRIST: CT left wrist performed in the axial plane. Sagittal and coronal reconstruction images are performed. Correlation made with plain films 01/17/2017. Mildly comminuted fracture is seen of the distal radius. The primary fracture line is essentially perpendicular to the joint surface, mildly oblique. It extends into the radiocarpal joint. There is minimal displacement of the main fracture fragment medially. A couple of tiny fragments are seen at the distal end of the fracture and there is a tiny linear fragment at the proximal end of the fracture. No other acute fracture or dislocation is seen of the visualized osseous structures. Signed by Jaxson Johnson MD 02/01/2017 02:27 P
== END ==
LOC: M RAD 11:48
PROVIDERS: ATTEND Orthopaedic Surgery
DX: S62.012A Displaced fracture of distal pole of navicular [scaphoid] bone of left wrist, initial encounter for closed fracture (principal); W18.30XA Fall on same level, unspecified, initial encounter; Y92.009 Unspecified place in unspecified non-institutional (private) residence as the place of occurrence of the external cause

== ENCOUNTER → 2018-05-20 | Outpatient (REF) | payer OTHER ==
[2018-05-20 20:50] LABS: ALBUMIN 3.6 GM/DL (3.2-5.2); ALT/SGPT 88 U/L (12-78); BILIRUBIN,TOTAL 0.2 MG/DL (0.2-1.0); BLOOD UREA NITROGEN 9 MG/DL (7-18); CALCIUM LEVEL 8.7 MG/DL (8.5-10.1); CARBON DIOXIDE LEVEL 27 MEQ/L (21-32); CHLORIDE LEVEL 107 MEQ/L (98-107); CHOLESTEROL LEVEL 138 MG/DL (<200); CHOLESTEROL RISK RATIO 3.365 (<5); CREATININE FOR GFR 0.87 MG/DL (0.70-1.30); GLOMERULAR FILTRATION RATE > 60.0 (>60); GLUCOSE, FASTING 88 MG/DL (70-100); HDL CHOLESTEROL 41 MG/DL (>40); LDL CHOLESTEROL 61 MG/DL (<100); NON-HDL-C 97 MG/DL; POTASSIUM SERUM 4.2 MEQ/L (3.5-5.1); SODIUM LEVEL 142 MEQ/L (136-145); TOTAL PROTEIN 6.6 GM/DL (6.4-8.2); TRIGLYCERIDES LEVEL 178 MG/DL (<150)
== END ==
LOC: M LAB REF 18:36
PROVIDERS: ATTEND Family Medicine Addiction Medicine
DX: R68.89 Other general symptoms and signs (principal); E66.01 Morbid (severe) obesity due to excess calories

== ENCOUNTER 2018-07-18 19:10 | Emergency (ER) | payer OTHER ==
[~2018-07-18] VITALS: Ht 177.8 cm; Wt 152.2 kg
[2018-07-18] MEDS ORDERED: diphenhydrAMINE INJ 50MG/ML VIAL (J1200) IV STA (20:17)
[2018-07-18 20:28] LABS: INFLUENZA A AMPLIFICATION POSITIVE (NEGATIVE); INFLUENZA B AMPLIFICATION NEGATIVE (NEGATIVE)
[2018-07-18] MEDS ORDERED: METOCLOPRAMIDE INJ 10MG/2ML VIAL (J2765) IV ONE (20:30)
[2018-07-18] MEDS ORDERED: KETOROLAC 30 MG/ML VIAL (J1885) IV ONE (20:30)
[2018-07-18] MEDS ORDERED: AZITHROMYCIN 250 MG TAB PO ONE (21:30)
[2018-07-18] MEDS ORDERED: NS 1,000 ML IV ONE (21:30)
[2018-07-18] MEDS ORDERED: ZITHTAB PO (22:57)
[2018-07-18 23:05] VITALS: BP 133/65
--- NOTE | 2018-07-19 08:57 | REP ---
PA and lateral chest: Comparison is 05/26/2016. There is scoliosis convex left at the thoracolumbar junction, unchanged. Lung ortega are clear and unchanged. Cardiac size is normal. Lynda, mediastinum, skeletal structures are unremarkable. Impression: Scoliosis, otherwise negative PA and lateral chest. No interval change. Electronically Signed by Jaxson Maher MD 07/19/2018 08:49 A
== END 2018-07-18 23:07 | disposition home or self-care (01) ==
LOC: M ED 19:10
DX: J09.X2 Influenza due to identified novel influenza A virus with other respiratory manifestations (principal); J18.8 Other pneumonia, unspecified organism; F90.9 Attention-deficit hyperactivity disorder, unspecified type; F31.9 Bipolar disorder, unspecified; J45.909 Unspecified asthma, uncomplicated; M41.9 Scoliosis, unspecified; Z72.0 Tobacco use; Z88.8 Allergy status to other drugs, medicaments and biological substances; Z88.2 Allergy status to sulfonamides
CPT/HCPCS: 71046; 87502; 96361; 96374; 96375; 99284; J1200; J1885; J2765